=== PATIENT | female | born 1995 | race Caucasian/White ===

== ENCOUNTER 2022-04-09 13:01 | Observation (INO) ==
[2022-04-09] MEDS ORDERED: Lactated Ringers 1000 ml BAG 1,000 ML IV ONE ×2 (13:58→15:10)
[2022-04-09 14:59] LABS: ABS Eosinophils 0.3 10^3/ul (0-0.6); ABS Lymphocytes 2.4 10^3/ul (1.0-4.8); ABS Monocytes 0.5 10^3/ul (0-0.8); ABS Neutrophils 3.1 10^3/ul (1.5-7.7); Eosinophil % 5.1 %; Hematocrit 39 % (35-47); Lymphocyte % 37.9 %; Mean Corpuscular HGB Conc 36 g/dL (31-36); Mean Corpuscular Hemoglobin 30 pg (27-31); Mean Corpuscular Volume 84 fL (80-97); Mean Platelet Volume 8.6 fL (7.4-10.4); Platelet Count 228 10^3/uL (150-450); Red Blood Count 4.64 10^6 /uL (3.70-4.87); Red Cell Distribution Width 13 % (10-15); White Blood Count 6.4 10^3/uL (3.5-10.8)
[2022-04-09 15:22] LABS: HCG Pregnancy < 0.60 mIU/mL
[2022-04-09 15:24] LABS: ALT 17 U/L (7-52); AST 15 U/L (13-39); Albumin 4.8 g/dL (3.2-5.2); Albumin/Globulin Ratio 1.5 (1-3); Alkaline Phosphatase 48 U/L (35-149); Anion Gap 8 mmol/L (2-11); Blood Urea Nitrogen 16 mg/dL (6-24); CO2 Carbon Dioxide 20 mmol/L (22-32); Calcium 9.8 mg/dL (8.6-10.3); Chloride 106 mmol/L (101-111); Globulin 3.2 g/dL (2-4); Glucose 105 mg/dL (70-100); Potassium 3.5 mmol/L (3.5-5.0); Sodium 134 mmol/L (135-145); eGFR CKD-EPI 99.9 (>60)
[2022-04-09 15:32] LABS: TSH Ultra Thyroid Stim Horm 2.89 mcIU/mL (0.34-5.60)
[2022-04-09 15:33] LABS: Free T4 0.96 ng/dL (0.61-1.12)
[2022-04-09] MEDS ORDERED: Iohexol 350 (CONTRAST) 500 ML MDV IV ONE (15:35)
[2022-04-09 16:26] LABS: Urine Appearance Clear; Urine Bilirubin Negative (Negative); Urine Blood Negative (Negative); Urine Color Straw; Urine Glucose Negative (Negative); Urine Ketones Negative (Negative); Urine Nitrite Negative (Negative); Urine Protein Negative (Negative); Urine Specific Gravity 1.015 (1.005-1.030); Urine Urobilinogen 0.2 (Negative) (Negative); Urine pH 6.5 (5.0-9.0)
[2022-04-09 16:53] LABS: Urine Bacteria Absent (Absent); Urine Red Blood Cell Trace(0-2/hpf) (Absent); Urine Squamous Epithelial Cell Present (Absent); Urine White Blood Cell Trace(0-5/hpf) (Absent)
[2022-04-09] MEDS ORDERED: Cefepime 1 GM in Dextrose 1 GM/50 ML BAG IV ONE (16:54)
[2022-04-09] MEDS: Lactated Ringers 1000 ml BAG 1,000 ML IV SCH (18:54)
[2022-04-09 20:05] LABS: C Reactive Protein < 1.00 mg/L (<8.01)
[2022-04-09 21:12] LABS: Erythrocyte Sed Rate 10 mm/Hr (0-19)
[2022-04-10] MEDS: Lactated Ringers 1000 ml BAG 1,000 ML IV SCH ×2 (01:23→08:13)
[2022-04-10 06:03] LABS: ABS Eosinophils 0.3 10^3/ul (0-0.6); ABS Lymphocytes 2.9 10^3/ul (1.0-4.8); ABS Monocytes 0.5 10^3/ul (0-0.8); ABS Neutrophils 2.7 10^3/ul (1.5-7.7); Eosinophil % 5.1 %; Hematocrit 32 % (35-47); Hemoglobin 11.8 g/dL (12.0-16.0); Lymphocyte % 44.8 %; Mean Corpuscular HGB Conc 37 g/dL (31-36); Mean Corpuscular Hemoglobin 31 pg (27-31); Mean Corpuscular Volume 84 fL (80-97); Mean Platelet Volume 8.1 fL (7.4-10.4); Platelet Count 174 10^3/uL (150-450); Red Blood Count 3.81 10^6 /uL (3.70-4.87); Red Cell Distribution Width 13 % (10-15); White Blood Count 6.5 10^3/uL (3.5-10.8)
[2022-04-10 06:21] LABS: Anion Gap 8 mmol/L (2-11); Blood Urea Nitrogen 13 mg/dL (6-24); C Reactive Protein < 1.00 mg/L (<8.01); CO2 Carbon Dioxide 25 mmol/L (22-32); Calcium 8.7 mg/dL (8.6-10.3); Chloride 107 mmol/L (101-111); Glucose 88 mg/dL (70-100); Potassium 3.6 mmol/L (3.5-5.0); Sodium 140 mmol/L (135-145)
[2022-04-10] MEDS ORDERED: Ondansetron 4 mg VIAL 2 MG/ML 2 ml VIAL IV PRN (08:41)
[2022-04-10 15:33] VITALS: BP 120/64
[2022-04-11 12:37] LABS: EBV Capsid Ag IgG Ab Positive (Negative); EBV Capsid Ag IgM Ab Equivocal (Negative); Epstein-Barr Nuclear Antigen Positive (Negative)
[2022-04-11 14:00] LABS: Complement C3 135 mg/dL (75 - 175)
== END 2022-04-10 16:05 | disposition home or self-care (01) ==
LOC: EDHOLD 13:01 → ED 13:01 → MEDTELE 04-10 00:26
PROVIDERS: ADMIT Internal Medicine; ATTEND Internal Medicine

== ENCOUNTER 2023-01-22 21:14 | Observation (INO) ==
[2023-01-22 22:55] LABS: Urine Appearance Cloudy; Urine Bilirubin Negative (Negative); Urine Blood 3+ (Negative); Urine Color Yellow; Urine Glucose Negative (Negative); Urine Ketones Negative (Negative); Urine Nitrite Positive (Negative); Urine Protein Negative (Negative); Urine Specific Gravity 1.006 (1.002-1.030); Urine Urobilinogen Negative (Negative)
[2023-01-22 22:59] LABS: Urine Bacteria Absent (Absent); Urine Red Blood Cell 3+(>10/hpf) (Absent); Urine Squamous Epithelial Cell Present (Absent); Urine White Blood Cell 1+(6-10/hpf) (Absent)
[2023-01-22] MEDS ORDERED: NS 0.9% 1000 ml BAG 1,000 ML IV ONE (23:00)
[2023-01-22] MEDS ORDERED: Metoclopramide 5 MG/ML VIAL (10 mg) IV SLOW PU ONE (23:03)
[2023-01-23 00:01] LABS: ABS Eosinophils 0.2 10^3/uL (0.0-0.5); ABS Lymphocytes 2.2 10^3/uL (1.0-4.8); ABS Monocytes 0.5 10^3/uL (0.0-0.9); ABS Neutrophils 5.4 10^3/uL (1.5-7.6); Eosinophil % 2.3 %; Hemoglobin 12.7 g/dL (11.5-14.3); Lymphocyte % 26.4 %; Mean Corpuscular Hemoglobin 29.4 pg (27-33); Mean Corpuscular Hgb Conc 35.4 g/dL (31-36); Mean Corpuscular Volume 83.1 fL (80-97); Mean Platelet Volume 8.4 fL (7.5-11.2); Platelet Count 231 10^3/uL (150-450); Red Blood Count 4.33 10^6/uL (3.63-4.92); Red Cell Distribution Width 12.7 % (12-17); White Blood Count 8.4 10^3/uL (3.8-11.8)
[2023-01-23 00:11] LABS: INR 1.14 (0.88-1.18)
[2023-01-23 00:18] LABS: Albumin 4.1 g/dL (3.2-5.2); Albumin/Globulin Ratio 1.3 (1-3); Calcium 9.2 mg/dL (8.6-10.3); Creatinine, Serum 0.85 mg/dL (0.51-0.95); Globulin 3.1 g/dL (2-4); Magnesium 1.7 mg/dL (1.9-2.7); Potassium 3.5 mmol/L (3.5-5.0); Total Bilirubin 0.4 mg/dL (0.2-1.0); Total Protein 7.2 g/dL (6.4-8.9); eGFR CKD-EPI 95.1 (>60)
[2023-01-23 01:15] LABS: Urine Benzodiazepine Screen None Detected (None Detect); Urine Cannabinoids Screen None Detected (None Detect); Urine Opiates Screen None Detected (None Detect)
[2023-01-23] MEDS ORDERED: Morphine 4 MG/ML VIAL (1 ml) IV ONE (01:22)
[2023-01-23] MEDS ORDERED: Ondansetron 4 mg VIAL 2 MG/ML 2 ml VIAL IV ONE (02:17)
[2023-01-23] MEDS ORDERED: Ondansetron 4 mg VIAL 2 MG/ML 2 ml VIAL ONE (02:18)
[2023-01-23 03:01] LABS: HCG Pregnancy 0.64 mIU/mL
[2023-01-23] MEDS ORDERED: Albuterol HFA INHALER 8 gm MDI INH PRN (04:59)
[2023-01-23] MEDS: cefTRIAXone 1 gm/50 mL D5W 1 GM/50 ML BAG IV SCH (06:09)
[2023-01-23 06:53] LABS: ABS Basophils 0.1 10^3/uL (0.0-0.1); ABS Eosinophils 0.2 10^3/uL (0.0-0.5); ABS Lymphocytes 2.6 10^3/uL (1.0-4.8); ABS Monocytes 0.6 10^3/uL (0.0-0.9); ABS Neutrophils 3.7 10^3/uL (1.5-7.6); Eosinophil % 3.3 %; Hematocrit 32.7 % (35-45); Hemoglobin 11.6 g/dL (11.5-14.3); Lymphocyte % 36.1 %; Mean Corpuscular Hemoglobin 29.9 pg (27-33); Mean Corpuscular Hgb Conc 35.5 g/dL (31-36); Mean Corpuscular Volume 84.3 fL (80-97); Mean Platelet Volume 8.5 fL (7.5-11.2); Platelet Count 202 10^3/uL (150-450); Red Blood Count 3.87 10^6/uL (3.63-4.92); Red Cell Distribution Width 12.6 % (12-17); White Blood Count 7.1 10^3/uL (3.8-11.8)
[2023-01-23 07:09] LABS: Albumin 3.6 g/dL (3.2-5.2); Albumin/Globulin Ratio 1.4 (1-3); Calcium 8.4 mg/dL (8.6-10.3); Creatinine, Serum 0.83 mg/dL (0.51-0.95); Globulin 2.5 g/dL (2-4); Magnesium 1.8 mg/dL (1.9-2.7); Potassium 3.4 mmol/L (3.5-5.0); Total Bilirubin 0.4 mg/dL (0.2-1.0); Total Protein 6.1 g/dL (6.4-8.9); eGFR CKD-EPI 97.8 (>60)
[2023-01-23] MEDS ORDERED: Potassium Chlor 20 meq TAB.ER PO ONE (07:12)
[2023-01-23] MEDS ORDERED: Magnesium Sulfate 2 gm BAG 2 GM/50 ML BAG IVPB ONE (07:13)
[2023-01-23] MEDS ORDERED: Butalb/Acetamin/Caff TAB 325-50-40MG PO ONE (12:13)
[2023-01-23] MEDS ORDERED: Enoxaparin 40 MG/0.4 ML SYR SUBCUT SCH (15:00)
[2023-01-23] MEDS ORDERED: Gadoteridol (CONTRAST) 279.3 MG/ML 10 ML IV ONE (19:15)
[2023-01-24 05:45] LABS: Hematocrit 33.9 % (35-45); Hemoglobin 11.9 g/dL (11.5-14.3); Mean Corpuscular Hemoglobin 29.2 pg (27-33); Mean Corpuscular Volume 83.4 fL (80-97); Mean Platelet Volume 8.5 fL (7.5-11.2); Platelet Count 192 10^3/uL (150-450); Red Blood Count 4.07 10^6/uL (3.63-4.92); Red Cell Distribution Width 12.5 % (12-17); White Blood Count 8.6 10^3/uL (3.8-11.8)
[2023-01-24 06:03] LABS: Calcium 8.8 mg/dL (8.6-10.3); Creatinine, Serum 0.88 mg/dL (0.51-0.95); Magnesium 2.1 mg/dL (1.9-2.7); Potassium 3.7 mmol/L (3.5-5.0); eGFR CKD-EPI 91.2 (>60)
[2023-01-24] MEDS: cefTRIAXone 1 gm/50 mL D5W 1 GM/50 ML BAG IV SCH (08:31)
[2023-01-24 09:35] VITALS: BP 124/85
[2023-01-25 11:22] LABS: Complement C3 109 mg/dL (75 - 175)
[2023-01-25 13:47] LABS: Ribosomal Antibody <0.2 U
[2023-01-25 14:14] LABS: Immunoglobulin A 222 mg/dL (61 - 356); Immunoglobulin G 1030 mg/dL (767 - 1590); Immunoglobulin M 115 mg/dL (37 - 286)
[2023-01-25 22:14] LABS: Phospholipid Ab IgG < 9.4 GPL; Phospholipid Ab IgM, S 11.3 MPL
== END 2023-01-24 13:50 | disposition home or self-care (01) ==
LOC: ED 21:14 → EDHOLD 21:14 → SUATTDRO 01-23 02:14 → MED 01-23 04:29
PROVIDERS: ADMIT Internal Medicine; ATTEND Internal Medicine

== ENCOUNTER 2023-10-31 16:16 | Inpatient (IN) ==
[2023-10-31 16:57] LABS: ABS Basophils 0.1 10^3/uL (0.0-0.1); ABS Eosinophils 0.3 10^3/uL (0.0-0.5); ABS Lymphocytes 3.4 10^3/uL (1.0-4.8); ABS Monocytes 0.6 10^3/uL (0.0-0.9); ABS Neutrophils 2.9 10^3/uL (1.5-7.6); Eosinophil % 3.9 %; Hematocrit 36.2 % (35-45); Hemoglobin 12.7 g/dL (11.5-14.3); Lymphocyte % 46.5 %; Mean Corpuscular Hemoglobin 29.9 pg (27-33); Mean Corpuscular Hgb Conc 34.9 g/dL (31-36); Mean Corpuscular Volume 85.8 fL (80-97); Mean Platelet Volume 7.9 fL (7.5-11.2); Platelet Count 434 10^3/uL (150-450); Red Blood Count 4.23 10^6/uL (3.63-4.92); Red Cell Distribution Width 13.4 % (12-17); White Blood Count 7.2 10^3/uL (3.8-11.8)
[2023-10-31] MEDS: Iodixanol (CONTRAST) 320 MG/ML 100 ML SDV IV ONE (17:07)
[2023-10-31] MEDS: Dexamethasone IV 4 MG/ML VIAL 1 ml VIAL IV SLOW PU ONE (17:10)
[2023-10-31] MEDS: Magnesium Sulfate IV 1GM/100ML 1 GM/100 ML BAG IV ONE (17:11)
[2023-10-31 17:14] LABS: Activated Partial Thrombo Time 34.2 seconds (26.0-38.0); INR 1.16 (0.83-1.13)
[2023-10-31 17:47] LABS: Albumin 5.3 g/dL (3.2-5.2); Albumin/Globulin Ratio 1.8 (1-3); Calcium 10.8 mg/dL (8.6-10.3); Creatinine, Serum 1.09 mg/dL (0.51-0.95); Direct Bilirubin 0.2 mg/dL (0.03-0.18); Globulin 2.9 g/dL (2-4); HDL Cholesterol 50.2 mg/dL; Indirect Bilirubin 0.8 mg/dL (0.3-1.0); Potassium 3.7 mmol/L (3.5-5.0); Total Protein 8.2 g/dL (6.4-8.9); eGFR CKD-EPI 70.1 (>60)
[2023-10-31 17:52] LABS: HCG Pregnancy 1.1 mIU/mL
[2023-10-31] MEDS: Lactated Ringers 1000 ml BAG 1,000 ML IV ONE (19:26)
[2023-10-31] MEDS: Ondansetron 4 mg VIAL 2 MG/ML 2 ml VIAL IV ONE (19:33)
[2023-10-31 20:50] LABS: Urine Appearance Clear; Urine Bilirubin Negative (Negative); Urine Blood Negative (Negative); Urine Color Light-Yellow; Urine Glucose Negative (Negative); Urine Ketones Negative (Negative); Urine Nitrite Negative (Negative); Urine Protein Trace (Negative); Urine Specific Gravity >1.050 (1.002-1.030); Urine Urobilinogen Negative (Negative)
[2023-11-01] MEDS ORDERED: Levalbuterol HFA INHALER MDI INH PRN (06:05)
[2023-11-01] MEDS ORDERED: RIMEGEPANT SULFATE 75 MG ODT TAB (NF) PO PRN (06:05)
[2023-11-01 06:20] LABS: ABS Monocytes 0.3 10^3/uL (0.0-0.9); ABS Nucleated RBC 0.01 10^3/ul; Hematocrit 32.7 % (35-45); Hemoglobin 11.7 g/dL (11.5-14.3); Lymphocyte % 15.8 %; Mean Corpuscular Hemoglobin 30.2 pg (27-33); Mean Corpuscular Hgb Conc 35.7 g/dL (31-36); Mean Corpuscular Volume 84.6 fL (80-97); Mean Platelet Volume 7.9 fL (7.5-11.2); Nucleated Red Blood Cells % 0.1 %/100WBC (0.0-0.8); Platelet Count 382 10^3/uL (150-450); Red Blood Count 3.86 10^6/uL (3.63-4.92); Red Cell Distribution Width 13.3 % (12-17); White Blood Count 6.4 10^3/uL (3.8-11.8)
[2023-11-01 07:22] LABS: Albumin 4.8 g/dL (3.2-5.2); Albumin/Globulin Ratio 1.8 (1-3); Creatinine, Serum 0.8 mg/dL (0.51-0.95); Globulin 2.6 g/dL (2-4); Magnesium 2.1 mg/dL (1.9-2.7); Phosphorus 4.3 mg/dL (2.5-5.0); Potassium 3.9 mmol/L (3.5-5.0); Total Protein 7.4 g/dL (6.4-8.9); eGFR CKD-EPI 101.6 (>60)
[2023-11-01 07:32] LABS: TSH Ultra Thyroid Stim Horm 0.44 mcIU/mL (0.34-5.60)
[2023-11-01] MEDS: MOMETASONE INH SCH (07:38)
[2023-11-01] MEDS: Sodium Chloride(INHALANT)0.9% 5 ML NEB.SOLN INH SCH (07:38)
[2023-11-01] MEDS ORDERED: Acetylcysteine INHALATION SOL 200 MG/ML NEB.SOLN 10 ML INH PRN (08:40)
[2023-11-01] MEDS: Enoxaparin 40 MG/0.4 ML SYR SUBCUT SCH (08:42)
[2023-11-01] MEDS: Acetylcysteine INHALATION SOL 200 MG/ML NEB.SOLN 10 ML INH SCH (08:43)
[2023-11-01] MEDS: Mometasone 220 MCG MDI INH SCH (08:49)
[2023-11-01] MEDS ORDERED: Acetylcysteine ORAL SOL 200 mg/ml 30 ml VIAL INH SCH (09:00)
[2023-11-01] MEDS: CMCS: Roflumilast 500 mcg TAB (NF) PO SCH (10:12)
[2023-11-01] MEDS: CMCS:Estradiol 1 mg TAB (NF) PO SCH (10:12)
[2023-11-01] MEDS: Levalbuterol 0.63MG/3ML NEB UNIT OF USE INH PRN (10:32)
[2023-11-01 11:25] LABS: Venous Bicarbonate HCO3 21.8 mmol/L (24-28)
[2023-11-01 13:58] LABS: High Sensitivity Troponin 1 Hr < 3 pg/mL (<15)
[2023-11-01] MEDS: Gadoteridol (CONTRAST) 279.3 MG/ML 10 ML IV ONE (15:50)
[2023-11-01] MEDS: methylPREDNISolone SOD SUCC 125 mg 2 ML VIAL IV SCH (16:42)
[2023-11-01] MEDS ORDERED: Lactated Ringers 1000 ml BAG 1,000 ML IV SCH (17:00)
[2023-11-01 17:11] LABS: CRP High Sensitivity 0.99 mg/L (<2.00)
[2023-11-01] MEDS: D5LR 1000 ml BAG 1,000 ML IV SCH (17:18)
[2023-11-02 01:41] LABS: Venous Bicarbonate HCO3 21.9 mmol/L (24-28)
[2023-11-02] MEDS: diazePAM INJ CARPUJECT 5 MG/ML SYRINGE ONE (01:41)
[2023-11-02] MEDS: diazePAM INJ CARPUJECT 5 MG/ML SYRINGE IV ONE ×2 (01:43→02:18)
[2023-11-02 01:54] LABS: Hematocrit 31.8 % (35-45); Hemoglobin 11.4 g/dL (11.5-14.3); Mean Corpuscular Hemoglobin 30.2 pg (27-33); Mean Corpuscular Hgb Conc 35.7 g/dL (31-36); Mean Corpuscular Volume 84.5 fL (80-97); Mean Platelet Volume 7.9 fL (7.5-11.2); Platelet Count 362 10^3/uL (150-450); Red Blood Count 3.76 10^6/uL (3.63-4.92); Red Cell Distribution Width 13.1 % (12-17); White Blood Count 5.6 10^3/uL (3.8-11.8)
[2023-11-02 02:35] LABS: Calcium 9.8 mg/dL (8.6-10.3); Creatinine, Serum 0.92 mg/dL (0.51-0.95); Magnesium 2.1 mg/dL (1.9-2.7); Potassium 3.9 mmol/L (3.5-5.0); eGFR CKD-EPI 85.9 (>60)
[2023-11-02 02:46] LABS: Urine Appearance Clear; Urine Bilirubin Negative (Negative); Urine Blood Negative (Negative); Urine Color Yellow; Urine Glucose Negative (Negative); Urine Ketones Trace (Negative); Urine Nitrite Negative (Negative); Urine Protein Negative (Negative); Urine Specific Gravity 1.021 (1.002-1.030); Urine Urobilinogen 1+ (Negative)
[2023-11-02] MEDS: Dexmedetomidine 1,000 MCG in NS 0.9% 250 ml 240 ML IV SCH (03:50)
[2023-11-02] MEDS: KCL 10 MEQ/50 ML IVPREMIX 10 MEQ/50 ML BAG IV ONE (09:39)
[2023-11-02] MEDS ORDERED: Ondansetron 4 mg VIAL 2 MG/ML 2 ml VIAL IV PRN (13:44)
[2023-11-02] MEDS: Lactated Ringers 1000 ml BAG 500 ML IV ONE (19:30)
[2023-11-02] MEDS: LAMOTRIGINE 25 MG SCH (20:48)
[2023-11-02 21:35] LABS: Vitamin D Total 25(OH) 8.1 ng/mL (20-50)
[2023-11-03 05:06] LABS: ABS Lymphocytes 1.3 10^3/uL (1.0-4.8); ABS Monocytes 0.6 10^3/uL (0.0-0.9); ABS Neutrophils 8.5 10^3/uL (1.5-7.6); ABS Nucleated RBC 0.01 10^3/ul; Lymphocyte % 12.4 %; Mean Corpuscular Hemoglobin 30.7 pg (27-33); Mean Corpuscular Hgb Conc 35.5 g/dL (31-36); Mean Corpuscular Volume 86.5 fL (80-97); Mean Platelet Volume 8.2 fL (7.5-11.2); Nucleated Red Blood Cells % 0.1 %/100WBC (0.0-0.8); Platelet Count 314 10^3/uL (150-450); Red Blood Count 3.58 10^6/uL (3.63-4.92); Red Cell Distribution Width 13.2 % (12-17); White Blood Count 10.4 10^3/uL (3.8-11.8)
[2023-11-03 05:47] LABS: Creatinine, Serum 0.93 mg/dL (0.51-0.95); Magnesium 2.2 mg/dL (1.9-2.7); Phosphorus 5.6 mg/dL (2.5-5.0); Potassium 4.1 mmol/L (3.5-5.0); eGFR CKD-EPI 84.8 (>60)
[2023-11-03] MEDS ORDERED: Sulfur Hexaflouride MICROSPHR 25 MG VIAL ONE (09:01)
[2023-11-03] MEDS: Folic Acid IV 1 MG in NS 0.9% 50 ML 50 ML IV ONE (09:26)
[2023-11-03] MEDS: Ondansetron 4 mg VIAL 2 MG/ML 2 ml VIAL IV PRN (13:00)
[2023-11-03 15:23] LABS: Albumin 4.6 g/dL (3.2-5.2); Albumin/Globulin Ratio 2.1 (1-3); Direct Bilirubin 0.3 mg/dL (0.03-0.18); Globulin 2.2 g/dL (2-4); Indirect Bilirubin 0.8 mg/dL (0.3-1.0); Total Bilirubin 1.1 mg/dL (0.2-1.0); Total Protein 6.8 g/dL (6.4-8.9)
[2023-11-03 15:40] LABS: Free T3 2.25 pg/mL (2.5-3.9)
[2023-11-03 15:43] LABS: Ferritin 140.9 ng/mL (11-307)
[2023-11-03 15:48] LABS: Free T4 0.97 ng/dL (0.61-1.12)
[2023-11-03 17:15] LABS: Hepatitis B Surface Antigen Nonreactive (Nonreactive)
[2023-11-03 17:20] LABS: Hepatitis A Ab IgM Negative (Negative)
[2023-11-03 17:21] LABS: Hepatitis B Core IgM Nonreactive (Nonreactive)
[2023-11-03 17:32] LABS: Hepatitis C Antibody Negative (Negative)
[2023-11-04 05:23] LABS: ABS Lymphocytes 1.8 10^3/uL (1.0-4.8); ABS Monocytes 0.9 10^3/uL (0.0-0.9); ABS Neutrophils 7.8 10^3/uL (1.5-7.6); Hematocrit 30.9 % (35-45); Hemoglobin 10.9 g/dL (11.5-14.3); Lymphocyte % 17.3 %; Mean Corpuscular Hemoglobin 30.6 pg (27-33); Mean Corpuscular Hgb Conc 35.4 g/dL (31-36); Mean Corpuscular Volume 86.3 fL (80-97); Mean Platelet Volume 8.2 fL (7.5-11.2); Platelet Count 267 10^3/uL (150-450); Red Blood Count 3.58 10^6/uL (3.63-4.92); Red Cell Distribution Width 13.1 % (12-17); White Blood Count 10.6 10^3/uL (3.8-11.8)
[2023-11-04 06:06] LABS: Calcium 9.7 mg/dL (8.6-10.3); Creatinine, Serum 0.79 mg/dL (0.51-0.95); Magnesium 2.2 mg/dL (1.9-2.7); Potassium 3.7 mmol/L (3.5-5.0); eGFR CKD-EPI 103.1 (>60)
[2023-11-04 14:36] LABS: Anaplasma phagocytophilum Negative (Negative); B. miyamotoi PCR, B Negative (Negative); Babesia divergens/MO-1 Negative (Negative); Babesia ducani Negative (Negative); Ehrlichia chaffeensis Negative (Negative); Ehrlichia ewingii/canis Negative (Negative); Ehrlichia muris eauclairensis Negative (Negative)
[2023-11-04 20:35] LABS: Folate 6.97 ng/mL (5.90-24.80)
[2023-11-05 04:41] LABS: ABS Lymphocytes 1.5 10^3/uL (1.0-4.8); ABS Monocytes 0.5 10^3/uL (0.0-0.9); ABS Neutrophils 7.8 10^3/uL (1.5-7.6); ABS Nucleated RBC 0.01 10^3/ul; Hematocrit 31.7 % (35-45); Hemoglobin 11.1 g/dL (11.5-14.3); Lymphocyte % 15.5 %; Mean Corpuscular Hemoglobin 30.1 pg (27-33); Mean Corpuscular Volume 85.8 fL (80-97); Mean Platelet Volume 8.1 fL (7.5-11.2); Nucleated Red Blood Cells % 0.1 %/100WBC (0.0-0.8); Platelet Count 270 10^3/uL (150-450); Red Blood Count 3.69 10^6/uL (3.63-4.92); Red Cell Distribution Width 13.4 % (12-17); White Blood Count 9.8 10^3/uL (3.8-11.8)
[2023-11-05 05:07] LABS: Albumin 4.5 g/dL (3.2-5.2); Calcium 9.8 mg/dL (8.6-10.3); Creatinine, Serum 0.89 mg/dL (0.51-0.95); Globulin 2.3 g/dL (2-4); Magnesium 2.2 mg/dL (1.9-2.7); Phosphorus 5.1 mg/dL (2.5-5.0); Total Bilirubin 1.1 mg/dL (0.2-1.0); Total Protein 6.8 g/dL (6.4-8.9); eGFR CKD-EPI 89.4 (>60)
[2023-11-05] MEDS: Gadoteridol (CONTRAST) 279.3 MG/ML 10 ML IV ONE (15:58)
[2023-11-05 17:33] LABS: Complement C3 120 mg/dL (75 - 175)
[2023-11-05 17:48] LABS: Immunoglobulin G 990 mg/dL (767 - 1590); Immunoglobulin M 70 mg/dL (37 - 286)
[2023-11-05 18:11] LABS: JO-1 Antibody <0.2 U; RNP Antibody, IgG <0.2 U; SS-A/Ro Antibody 0.9 U; SS-B/La Antibody <0.2 U; Scl 70 Ab, IgG, S <0.2 U; Sm (Smith) IgG Antibody <0.2 U
[2023-11-06 05:30] LABS: ABS Lymphocytes 3.6 10^3/uL (1.0-4.8); ABS Monocytes 0.9 10^3/uL (0.0-0.9); ABS Neutrophils 8.3 10^3/uL (1.5-7.6); ABS Nucleated RBC 0.01 10^3/ul; Hematocrit 33.6 % (35-45); Hemoglobin 11.8 g/dL (11.5-14.3); Lymphocyte % 28.1 %; Mean Corpuscular Hemoglobin 30.1 pg (27-33); Mean Corpuscular Hgb Conc 35.2 g/dL (31-36); Mean Corpuscular Volume 85.4 fL (80-97); Mean Platelet Volume 8.6 fL (7.5-11.2); Nucleated Red Blood Cells % 0.1 %/100WBC (0.0-0.8); Platelet Count 259 10^3/uL (150-450); Red Blood Count 3.93 10^6/uL (3.63-4.92); Red Cell Distribution Width 13.4 % (12-17); White Blood Count 12.8 10^3/uL (3.8-11.8)
[2023-11-06 05:58] LABS: Albumin 4.5 g/dL (3.2-5.2); Albumin/Globulin Ratio 1.8 (1-3); Calcium 10.1 mg/dL (8.6-10.3); Creatinine, Serum 0.92 mg/dL (0.51-0.95); Globulin 2.5 g/dL (2-4); Magnesium 2.3 mg/dL (1.9-2.7); Phosphorus 5.2 mg/dL (2.5-5.0); Potassium 3.9 mmol/L (3.5-5.0); eGFR CKD-EPI 85.9 (>60)
[2023-11-06 10:21] LABS: Cytomegalovirus IgG Antibody Negative (Negative)
[2023-11-06 13:14] LABS: Immunoglobulin Subclass IgG4 55.4 mg/dL
[2023-11-06 18:36] LABS: ANA Pattern: Homogeneous
[2023-11-06 20:23] LABS: Phospholipid Ab IgG < 9.4 GPL; Phospholipid Ab IgM, S < 9.4 MPL
[2023-11-06 23:07] LABS: Tissue Transglutaminase IgA Ab <1.2 U/mL
[2023-11-06 23:31] LABS: Immunoglobulin A 236 mg/dL (61 - 356)
[2023-11-07 07:27] LABS: Albumin 4.5 g/dL (3.2-5.2); Albumin/Globulin Ratio 1.7 (1-3); Calcium 9.9 mg/dL (8.6-10.3); Creatinine, Serum 0.89 mg/dL (0.51-0.95); Globulin 2.6 g/dL (2-4); Magnesium 2.4 mg/dL (1.9-2.7); Phosphorus 4.3 mg/dL (2.5-5.0); Potassium 3.9 mmol/L (3.5-5.0); Total Protein 7.1 g/dL (6.4-8.9); eGFR CKD-EPI 89.4 (>60)
[2023-11-07 07:57] LABS: ABS Lymphocytes 2.6 10^3/uL (1.0-4.8); ABS Monocytes 0.6 10^3/uL (0.0-0.9); ABS Nucleated RBC 0.01 10^3/ul; Eosinophil % 0.2 %; Hematocrit 34.2 % (35-45); Lymphocyte % 24.9 %; Mean Corpuscular Hemoglobin 30.2 pg (27-33); Mean Corpuscular Hgb Conc 35.1 g/dL (31-36); Mean Corpuscular Volume 85.9 fL (80-97); Mean Platelet Volume 8.1 fL (7.5-11.2); Nucleated Red Blood Cells % 0.1 %/100WBC (0.0-0.8); Platelet Count 217 10^3/uL (150-450); Red Blood Count 3.98 10^6/uL (3.63-4.92); Red Cell Distribution Width 13.3 % (12-17); White Blood Count 10.3 10^3/uL (3.8-11.8)
[2023-11-07] MEDS: Cholecalciferol (VIT D3) 1,000 unit TAB PO SCH (10:38)
[2023-11-07] MEDS: methylPREDNISolone SOD SUCC 125 mg 2 ML VIAL IV SCH (17:53)
[2023-11-07 20:57] LABS: Free T3 1.95 pg/mL (2.5-3.9)
[2023-11-07 22:27] LABS: Vitamin E 6.5 mg/L (5.5 - 17.0)
[2023-11-08 05:58] LABS: ABS Lymphocytes 4.6 10^3/uL (1.0-4.8); ABS Monocytes 1.2 10^3/uL (0.0-0.9); ABS Neutrophils 7.1 10^3/uL (1.5-7.6); ABS Nucleated RBC 0.01 10^3/ul; Eosinophil % 0.3 %; Hematocrit 33.7 % (35-45); Hemoglobin 11.9 g/dL (11.5-14.3); Lymphocyte % 35.6 %; Mean Corpuscular Hemoglobin 29.9 pg (27-33); Mean Corpuscular Hgb Conc 35.3 g/dL (31-36); Mean Corpuscular Volume 84.7 fL (80-97); Mean Platelet Volume 8.6 fL (7.5-11.2); Nucleated Red Blood Cells % 0.1 %/100WBC (0.0-0.8); Platelet Count 215 10^3/uL (150-450); Red Blood Count 3.97 10^6/uL (3.63-4.92); Red Cell Distribution Width 13.3 % (12-17)
[2023-11-08 06:35] LABS: Calcium 9.8 mg/dL (8.6-10.3); Creatinine, Serum 0.85 mg/dL (0.51-0.95); Potassium 3.7 mmol/L (3.5-5.0); eGFR CKD-EPI 94.5 (>60)
[2023-11-09 06:23] LABS: Hematocrit 33.9 % (35-45); Mean Corpuscular Hemoglobin 30.2 pg (27-33); Mean Corpuscular Hgb Conc 35.5 g/dL (31-36); Mean Corpuscular Volume 85.1 fL (80-97); Platelet Count 192 10^3/uL (150-450); Red Blood Count 3.98 10^6/uL (3.63-4.92); Red Cell Distribution Width 13.4 % (12-17); White Blood Count 12.3 10^3/uL (3.8-11.8)
[2023-11-09 06:44] LABS: Albumin 4.3 g/dL (3.2-5.2); Albumin/Globulin Ratio 1.9 (1-3); Calcium 9.7 mg/dL (8.6-10.3); Creatinine, Serum 0.86 mg/dL (0.51-0.95); Globulin 2.3 g/dL (2-4); Magnesium 2.1 mg/dL (1.9-2.7); Potassium 3.2 mmol/L (3.5-5.0); Total Bilirubin 0.8 mg/dL (0.2-1.0); Total Protein 6.6 g/dL (6.4-8.9); eGFR CKD-EPI 93.1 (>60)
[2023-11-09 07:15] LABS: ABS Eosinophils 0.2 10^3/uL (0.0-0.5); ABS Lymphocytes 5.6 10^3/uL (1.0-4.8); ABS Monocytes 1.3 10^3/uL (0.0-0.9); ABS Neutrophils 5.2 10^3/uL (1.5-7.6); Eosinophil % 1.7 %; Lymphocyte % 45.3 %
[2023-11-10] MEDS: Nystatin TOP POWDER 15 GM BTL TOPICAL SCH (01:07)
[2023-11-10 07:44] LABS: Calcium 9.8 mg/dL (8.6-10.3); Creatinine, Serum 0.84 mg/dL (0.51-0.95); Magnesium 2.2 mg/dL (1.9-2.7); eGFR CKD-EPI 95.8 (>60)
[2023-11-10] MEDS: Potassium Chlor 20 meq TAB.ER PO SCH (09:23)
[2023-11-11 07:40] LABS: ABS Eosinophils 0.2 10^3/uL (0.0-0.5); ABS Lymphocytes 4.3 10^3/uL (1.0-4.8); ABS Monocytes 1.1 10^3/uL (0.0-0.9); ABS Neutrophils 7.3 10^3/uL (1.5-7.6); Eosinophil % 1.5 %; Hematocrit 33.1 % (35-45); Hemoglobin 11.5 g/dL (11.5-14.3); Lymphocyte % 33.2 %; Mean Corpuscular Hemoglobin 29.8 pg (27-33); Mean Corpuscular Hgb Conc 34.8 g/dL (31-36); Mean Corpuscular Volume 85.6 fL (80-97); Mean Platelet Volume 8.8 fL (7.5-11.2); Platelet Count 189 10^3/uL (150-450); Red Blood Count 3.86 10^6/uL (3.63-4.92); Red Cell Distribution Width 13.6 % (12-17); White Blood Count 12.9 10^3/uL (3.8-11.8)
[2023-11-11 08:11] LABS: Calcium 9.6 mg/dL (8.6-10.3); Creatinine, Serum 0.84 mg/dL (0.51-0.95); Potassium 3.6 mmol/L (3.5-5.0); eGFR CKD-EPI 95.8 (>60)
[2023-11-11 10:53] VITALS: BP 112/67
== END 2023-11-11 12:15 | DRG 861 ==
LOC: EDHOLD 16:16 → ED 16:16 → MEDTELE 11-01 00:21 → ICU 11-02 01:29 → SUATTDRO 11-02 08:00 → MEDTELE 11-07 01:30
PROVIDERS: ADMIT Internal Medicine; ATTEND Internal Medicine

== ENCOUNTER 2023-11-11 14:04 | Inpatient (IN) ==
[2023-11-11] MEDS ORDERED: Magnesium Hydroxide LIQ 30 ML UDC PO PRN (16:55)
[2023-11-11] MEDS ORDERED: Senna TAB 8.6 mg TAB PO PRN (16:55)
[2023-11-11] MEDS: Mometasone 220 MCG MDI INH SCH (19:02)
[2023-11-11] MEDS: Potassium Chlor 20 meq TAB.ER PO SCH (21:38)
[2023-11-12] MEDS: CMCS:Estradiol 1 mg TAB (NF) PO SCH (08:17)
[2023-11-12] MEDS: Cholecalciferol (VIT D3) 1,000 unit TAB PO SCH (08:18)
[2023-11-12] MEDS: Enoxaparin 40 MG/0.4 ML SYR SUBCUT SCH (08:20)
[2023-11-12] MEDS: CMCS:Roflumilast 500 mcg TAB (NF) PO SCH (09:44)
[2023-11-13 07:15] LABS: ABS Eosinophils 0.2 10^3/uL (0.0-0.5); ABS Lymphocytes 4.7 10^3/uL (1.0-4.8); ABS Monocytes 1.1 10^3/uL (0.0-0.9); ABS Neutrophils 7.9 10^3/uL (1.5-7.6); ABS Nucleated RBC 0.02 10^3/ul; Eosinophil % 1.2 %; Hematocrit 34.6 % (35-45); Hemoglobin 11.9 g/dL (11.5-14.3); Lymphocyte % 33.6 %; Mean Corpuscular Hemoglobin 29.6 pg (27-33); Mean Corpuscular Hgb Conc 34.2 g/dL (31-36); Mean Corpuscular Volume 86.4 fL (80-97); Mean Platelet Volume 9.2 fL (7.5-11.2); Nucleated Red Blood Cells % 0.1 %/100WBC (0.0-0.8); Platelet Count 226 10^3/uL (150-450); Red Blood Count 4.01 10^6/uL (3.63-4.92)
[2023-11-13 07:31] LABS: Albumin 4.5 g/dL (3.2-5.2); Albumin/Globulin Ratio 1.9 (1-3); Calcium 10.1 mg/dL (8.6-10.3); Creatinine, Serum 0.87 mg/dL (0.51-0.95); Globulin 2.4 g/dL (2-4); Potassium 3.7 mmol/L (3.5-5.0); Total Bilirubin 0.9 mg/dL (0.2-1.0); Total Protein 6.9 g/dL (6.4-8.9); eGFR CKD-EPI 91.9 (>60)
[2023-11-14 18:15] VITALS: BP 111/72
[2023-11-15 07:48] LABS: Calcium 9.7 mg/dL (8.6-10.3); Creatinine, Serum 0.85 mg/dL (0.51-0.95); Potassium 3.4 mmol/L (3.5-5.0); eGFR CKD-EPI 94.5 (>60)
[2023-11-15] MEDS: Potassium Chlor 20 meq TAB.ER PO SCH (09:48)
== END 2023-11-15 11:00 | disposition home or self-care (01) | DRG 346 ==
LOC: PMRU 14:04
PROVIDERS: ADMIT Physical Medicine & Rehabilitation; ATTEND Physical Medicine & Rehabilitation